=== PATIENT | male | born 1970 | race American Indian/Alaskan Native ===

== ENCOUNTER 2017-09-28 12:01 | Emergency (ER) | payer BC ==
[2017-09-28 12:09] VITALS: BP 147/104
[2017-09-28] MEDS ORDERED: RABAVERT RABIES VACCINE(PCEC) IM ONE (15:37)
[2017-09-28] MEDS ORDERED: BOOSTRIX IM ONE (15:37)
[2017-09-28] MEDS ORDERED: hyperRAB S/D IM ONE (15:37)
[2017-09-28] MEDS ORDERED: MOTRIN PO ONE (15:38)
--- NOTE | 2017-09-28 16:23 | Emergency Department Report ---
Chief Complaint: Animal Bite Stated Complaint: RIGHT HAND DOG BITE Time Seen by Provider: 09/28/17 15:17 - HPI History of Present Illness: Patient is a 47-year-old male who is presenting after a dog bite. Patient states that a dog in his neighborhood attacked his dog and in trying to break them up the stray dog bit him in the right hand he's got multiple puncture wounds. Patient took an unknown antibiotic last night for that his cousin gave him. Patient states pain is a throbbing aching pain approximately a 4 out of 10. Patient denies any fever or purulent drainage from any of the wounds. Patient does not know the process owner of the dog has not seen his dog previously. - ROS Review of Systems: Review of systems is negative except for those elements in the HPI - Exam Vital Signs: Vital Signs 09/28/17 12:05 Temperature 98.3 F Pulse Rate 75 Respiratory 18 Rate Blood Pressure 147/104 O2 Sat by Pulse 100 Oximetry Physical Exam: Focused physical exam patient's right hand patient has a laceration in the first webspace. This laceration is approximately 1-1/2 cm. It is in the early stages of healing. Patient has multiple small scabbed puncture wounds on the dorsum and volar surface of the hand. There is some generalized swelling. Most notably at the dorsum of the hand MSE screening note: Focused history and physical exam performed. Due to findings the following was ordered: Patient will be given B immunoglobulin and vaccine for rabies doses been calculated patient also will have x-ray of the hand to rule out any tooth fragments. Patient's tetanus will be updated. ED Disposition for MSE Condition: Stable Referrals: YAZMIN MENESES MD [Primary Care Provider] - 3-5 Days
--- NOTE | 2017-09-28 17:00 | Emergency Department Report ---
HPI - General Chief Complaint: Animal Bite Time Seen by Provider: 09/28/17 15:17 - HPI HPI: 47-year-old male presents presented with ED complaining of dog bite that happened last night. Patient states it's unknown dog to him. Patient does not recall a tetanus update. Patient initially screened by Dr. Veliz. See MSE note for HPI. He states no other complaints ED Past Medical Hx - Past Medical History Hx Hypertension: Yes Additional medical history: sinusitis - Surgical History Past Surgical History?: No - Social History Smoking Status: Never Smoker Substance Use Type: None - Medications Home Medications: Home Medications Medication Instructions Recorded Confirmed Last Taken Type Amoxicillin/Potassium Clav 1 each PO BID #20 tablet 09/28/17 Unknown Rx [Augmentin 875-125 Tablet] Ibuprofen [Motrin] 800 mg PO Q8HR PRN #30 tablet 09/28/17 Unknown Rx ED Review of Systems ROS: Stated complaint: RIGHT HAND DOG BITE Other details as noted in HPI Constitutional: denies: chills, fever Eyes: denies: eye pain, eye discharge, vision change ENT: denies: ear pain, throat pain Respiratory: denies: cough, shortness of breath, wheezing Cardiovascular: denies: chest pain, palpitations Endocrine: no symptoms reported Gastrointestinal: denies: abdominal pain, nausea, diarrhea Genitourinary: denies: urgency, dysuria Musculoskeletal: denies: back pain, joint swelling, arthralgia Skin: denies: rash, lesions, pruritus Neurological: denies: headache, weakness, numbness, paresthesias, confusion Psychiatric: denies: anxiety, depression Hematological/Lymphatic: denies: easy bleeding, easy bruising Physical Exam - Physical Exam Vital Signs: Vital Signs 09/28/17 12:05 Temperature 98.3 F Pulse Rate 75 Respiratory 18 Rate Blood Pressure 147/104 O2 Sat by Pulse 100 Oximetry Physical Exam: GENERAL: Alert and oriented x3, no apparent distress, Normal Gait, atraumatic. HEAD: Head is normocephalic and a-traumatic. EYES: Extra ocular muscles are intact. Pupils are equal, round, and reactive to light and accommodation. NECK: Supple. Non edematous, No carotid bruits. No lymphadenopathy or thyromegaly. No C-spine tenderness LUNGS: Symetrical with respiration, No wheezing, no rales or crackles, CTAB. EXTREMITIES/MUSCULOSKELETAL: No cyanosis, clubbing, rash, lesions or edema. Full ROM bilaterally. UE/LE Pulses 2+ bilaterally. LE and UE 5+ strength bilaterally, straight dog bite laceration to right hand. She has full range of motion of the right hand. Bleeding controlled. SKIN: Warm and dry, No lesions, No ulceration or induration present. ED Course Vital Signs 09/28/17 12:05 Temperature 98.3 F Pulse Rate 75 Respiratory 18 Rate Blood Pressure 147/104 O2 Sat by Pulse 100 Oximetry ED Medical Decision Making - Radiology Data Radiology results: report reviewed, image reviewed No signs of foreign particles in the right hand - Medical Decision Making 47-year-old male presents to ED after sustaining a dog bite ED course: Patient received rabies immunoglobulin, rabies vaccination and Td booster Rabies immunoglobulin was administered subcutaneously around the bite and the rest was administered IM Discussed with patient need for 4 schedules of rabies vaccine. Discussed to return today for, day 7 and a 14 for remainder of fact schedules. Patient states she understands instructions given. She is alert and oriented 3, he has no neurological deficit and states she will follow up Vital signs are normal ,she is in no distress Critical care attestation.: If time is entered above; I have spent that time in minutes in the direct care of this critically ill patient, excluding procedure time. ED Disposition Clinical Impression: Dog bite of right hand Qualifiers: Encounter type: initial encounter Qualified Code(s): S61.451A - Open bite of right hand, initial encounter; W54.0XXA - Bitten by dog, initial encounter; W54.0XXA - Bitten by dog, initial encounter Disposition: DC- TO HOME OR SELFCARE Is pt being admited?: No Does the pt Need Aspirin: No Condition: Stable Instructions: Animal Bite (ED) Additional Instructions: Make sure to follow up with the primary care physician as discussed. Take all your medications as you've been prescribed. If you have any worsening symptoms or develop new symptoms please return to ED immediately. Return for your next vaccinations in 3 days, and 7 days, and 14 days from today Prescriptions: Amoxicillin/Potassium Clav [Augmentin 875-125 Tablet] 1 each PO BID #20 tablet Ibuprofen [Motrin] 800 mg PO Q8HR PRN #30 tablet PRN Reason: Pain Referrals: YAZMIN MENESES MD [Primary Care Provider] - 3-5 Days Forms: Work/School Release Form(ED) Time of Disposition: 17:02
--- NOTE | 2017-09-28 17:55 | XRay Report ---
FINAL REPORT PROCEDURE: AP and lateral portable right hand TECHNIQUE: RIGHT hand radiographs, AP and lateral views. CPT 44461-AA HISTORY: dog bite/ FB COMPARISON: No prior studies are available for comparison. FINDINGS: No fracture or dislocation is visualized. No radiopaque foreign bodies are identified. Moderate osteoarthritic change seen at the carpal/metacarpal joint of the thumb. No abnormal periosteal reaction or focal bone loss is seen. IMPRESSION: No evidence of fracture or radiopaque foreign body. Osteoarthritis as described..
== END 2017-09-28 17:15 | disposition home or self-care (01) ==
LOC: ED 12:01
DX: S61.451A Open bite of right hand, initial encounter (principal); I10 Essential (primary) hypertension; W54.0XXA Bitten by dog, initial encounter; Y93.89 Activity, other specified; Y99.8 Other external cause status; Y92.89 Other specified places as the place of occurrence of the external cause
CPT/HCPCS: 90375; 90471; 90472; 90675; 90715; 96372